=== PATIENT | female | born 1945 | race Caucasian/White ===

== ENCOUNTER 2017-05-19 11:30 | Inpatient (IN) | payer OTHER ==
[~2017-05-19] VITALS: Ht 154.9 cm; Wt 77.1 kg
[2017-05-19 11:30] VITALS: BP_SYST 153
[2017-05-19] MEDS ORDERED: ASPIRIN 81 MG TAB.CHEW PO ONE (11:45)
[2017-05-19] MEDS ORDERED: NITROGLYCERIN 1 INCH (GM) OINT. TP ONE (11:45)
[2017-05-19 12:14] LABS: BASOPHILS % (AUTO) 0.7 % (0.0-2.0); EOSINOPHILS # (AUTO) 0.1 K/uL (0.0-0.4); EOSINOPHILS % (AUTO) 1.9 % (0.0-4.0); HEMATOCRIT 42.7 % (36-48); HEMOGLOBIN 14.1 g/dL (12.0-16.0); LYMPHOCYTES # (AUTO) 1.5 K/uL (1.0-5.5); LYMPHOCYTES % (AUTO) 31.8 % (20.5-51.5); MEAN CORPUSCULAR HEMOGLOBIN 29 pg (27-31); MEAN CORPUSCULAR HGB CONC 33 % (32-36); MEAN CORPUSCULAR VOLUME 88 fL (79.0-98.0); MONOCYTES # (AUTO) 0.5 K/uL (0.0-1.0); MONOCYTES % (AUTO) 11.3 % (1.7-9.3); NEUTROPHILS # (AUTO) 2.5 K/uL (1.8-7.7); NEUTROPHILS % (AUTO) 54.3 % (40.0-70.0); PLATELET COUNT (AUTO) 201 K/uL (130-430); RED BLOOD CELL COUNT(AUTO) 4.86 MIL/uL (4.2-6.2); RED CELL DISTRIBUTION WIDTH 12.9 % (9.0-15.0); WHITE BLOOD COUNT (AUTO) 4.6 K/uL (4.8-10.8)
[2017-05-19 12:24] LABS: ANION GAP 7 (5-15); CALCIUM 9.1 mg/dL (8.4-11.0); CHLORIDE 103 mmol/L (98-107); CREATININE 0.79 mg/dL (0.55-1.30); GLUCOSE 115 mg/dL (70-99); SODIUM SERUM 138 mmol/L (136-145); UREA NITROGEN, BLOOD 18 mg/dL (8-21)
[2017-05-19 12:28] LABS: PROTHROMBIN TIME 10.9 SECS (9.5-12.5)
[2017-05-19 12:29] LABS: ALANINE AMINOTRANSFERASE 18 U/L (12-78); ALBUMIN 3.8 g/dL (3.4-4.8); ASPARTATE AMINOTRANSFERASE 16 U/L (10-37); TOTAL BILIRUBIN 0.6 mg/dL (0.0-1.0); TOTAL PROTEIN, SERUM 7.5 g/dL (6.4-8.3)
[2017-05-19 12:35] LABS: BILIRUBIN,URINE NEGATIVE (NEGATIVE); BLOOD, URINE NEGATIVE (NEGATIVE); CLARITY/URINE SL HAZY (CLEAR); COLOR,URINE YELLOW (YELLOW); GLUCOSE,URINE NEGATIVE (NEGATIVE); KETONES,URINE NEGATIVE (NEGATIVE); LEUKOCYTE ESTERASE ,URINE NEGATIVE (NEGATIVE); NITRITE, URINE NEGATIVE (NEGATIVE); PROTEIN URINE NEGATIVE (NEGATIVE); UROBILINOGEN,URINE 0.2 (0.2-1.0)
[2017-05-19] MEDS ORDERED: ASPIRIN 81 MG TAB.CHEW ONE (12:48)
[2017-05-19] MEDS ORDERED: GLU500 PO (13:32)
[2017-05-19] MEDS ORDERED: MULT PO (13:32)
[2017-05-19] MEDS ORDERED: CEL20 PO (13:32)
[2017-05-19] MEDS ORDERED: pravastatin PO (13:32)
[2017-05-19 15:06] VITALS: BP_SYST 115
[2017-05-19 17:15] VITALS: BP_SYST 119
[2017-05-19 20:00] VITALS: BP_SYST 110
[2017-05-19] MEDS ORDERED: ASPIRIN 325 MG TABLET (ECOTRIN) PO ONE (21:00)
[2017-05-19 23:38] VITALS: BP_SYST 127
[2017-05-20 04:00] VITALS: BP_SYST 108
[2017-05-20 08:31] VITALS: BP_SYST 149
[2017-05-20] MEDS: ASPIRIN 325 MG TABLET PO SCH (09:26)
[2017-05-20] MEDS ORDERED: DEXTROSE 50% JECT 50 ML DISP.SYRIN IVP PRN (11:00)
[2017-05-20 11:14] LABS: CHOLESTEROL 257 mg/dL (<200); HDL CHOLESTEROL 56 mg/dL (>55); LDL CHOLESTEROL 177 mg/dL (<100); TRIGLYCERIDES 175 mg/dL (30-150)
[2017-05-20 12:56] VITALS: BP_SYST 157
[2017-05-20 16:35] VITALS: BP_SYST 144
[2017-05-20] MEDS: metFORMIN HCL 500 MG TABLET PO SCH (17:41)
[2017-05-20 19:50] VITALS: BP_SYST 130
[2017-05-20] MEDS: INSULIN REGULAR, HUMAN 100 UNITS/ML, 10 ML VIAL (novoLIN R) SUBCUT PRN (23:27)
[2017-05-21 00:08] VITALS: BP_SYST 135
[2017-05-21 06:34] VITALS: BP_SYST 134
[2017-05-21] MEDS: INSULIN REGULAR, HUMAN 100 UNITS/ML, 10 ML VIAL (novoLIN R) SUBCUT PRN (07:06)
[2017-05-21] MEDS: metFORMIN HCL 500 MG TABLET PO SCH (08:03)
[2017-05-21 08:05] VITALS: BP_SYST 136
[2017-05-21] MEDS: ASPIRIN 325 MG TABLET PO SCH (08:52)
[2017-05-21] MEDS ORDERED: CITALOPRAM HYDROBROMIDE 20 MG TABLET PO SCH (09:00)
[2017-05-21] MEDS ORDERED: MULTIVITAMINS TAB 1 TABLET PO SCH (09:00)
[2017-05-21 09:13] VITALS: BP_SYST 136
== END 2017-05-21 11:11 | disposition home or self-care (01) | DRG 313 ==
LOC: SED 11:30 → STU 14:37
PROVIDERS: ADMIT Internal Medicine Hospice and Palliative Medicine; ATTEND Internal Medicine Hospice and Palliative Medicine
DX: R07.89 Other chest pain (principal); I10 Essential (primary) hypertension; E11.9 Type 2 diabetes mellitus without complications; E78.5 Hyperlipidemia, unspecified; M79.642 Pain in left hand; M79.7 Fibromyalgia; M54.2 Cervicalgia; Z79.899 Other long term (current) drug therapy; Z90.49 Acquired absence of other specified parts of digestive tract; Z88.0 Allergy status to penicillin
CPT/HCPCS: 36415; 71010; 80053; 80061; 81003; 82962; 83880; 84484; 85025; 85610-TC; 93005; 93306; 99285

== ENCOUNTER 2017-09-28 09:42 | Outpatient (CLI) | payer OTHER ==
[~2017-09-28 09:42] MED LIST: CEL20 PO; GLU500 PO; MULT PO; pravastatin PO
== END 2017-09-28 21:01 | disposition home or self-care (01) ==
LOC: SMA 09:42
PROVIDERS: ATTEND Internal Medicine
DX: Z12.31 Encounter for screening mammogram for malignant neoplasm of breast (principal)
CPT/HCPCS: G0202

== ENCOUNTER 2018-05-05 11:34 | Outpatient (CLI) | payer OTHER | END 2018-05-05 20:25 | disposition home or self-care (01) | LOC: SRD 11:34 | PROVIDERS: ATTEND Internal Medicine | DX: M19.011 Primary osteoarthritis, right shoulder (principal) | CPT/HCPCS: 73030 ==

== ENCOUNTER 2019-03-23 08:50 | Outpatient (CLI) | payer OTHER | END 2019-03-23 18:06 | disposition home or self-care (01) | LOC: SMA 08:50 | PROVIDERS: ATTEND Internal Medicine | DX: Z12.31 Encounter for screening mammogram for malignant neoplasm of breast (principal); R92.0 Mammographic microcalcification found on diagnostic imaging of breast | CPT/HCPCS: 77067 ==

== ENCOUNTER 2021-06-03 09:46 | Outpatient (CLI) | payer OTHER | END 2021-06-03 20:27 | disposition home or self-care (01) | LOC: SMA 09:46 | PROVIDERS: ATTEND Internal Medicine | DX: Z12.31 Encounter for screening mammogram for malignant neoplasm of breast (principal) | CPT/HCPCS: 77067 ==

== ENCOUNTER 2021-12-29 09:19 | Outpatient (CLI) | payer OTHER | END 2021-12-29 21:09 | disposition home or self-care (01) | LOC: SMA 09:19 | PROVIDERS: ATTEND Internal Medicine | DX: N64.4 Mastodynia (principal); R07.89 Other chest pain | CPT/HCPCS: 76642 ==

== ENCOUNTER 2022-02-12 13:07 | Outpatient (CLI) | payer OTHER | END 2022-02-12 18:11 | disposition home or self-care (01) | LOC: SRD 13:07 | PROVIDERS: ATTEND Internal Medicine | DX: Z01.818 Encounter for other preprocedural examination (principal); N93.9 Abnormal uterine and vaginal bleeding, unspecified; J98.4 Other disorders of lung | CPT/HCPCS: 71046-TC ==

== ENCOUNTER 2023-06-30 20:22 | Emergency (ER) | payer OTHER, MEDICAID ==
[~2023-06-30] VITALS: Ht 157.5 cm; Wt 74.8 kg
[2023-06-30 20:28] VITALS: BP_SYST 146; PULSE 74; RESP 20; TEMP 96.8; O2SAT 96
[2023-06-30] MEDS ORDERED: KETOROLAC TROMETHAMINE 60 MG/2 ML VIAL IM ONE ×2 (21:15→21:21)
[2023-06-30] MEDS ORDERED: NAPR-690 PO (21:41)
== END 2023-06-30 21:49 | disposition home or self-care (01) ==
LOC: SED 20:22
DX: S33.5XXA Sprain of ligaments of lumbar spine, initial encounter (principal); J45.909 Unspecified asthma, uncomplicated; I11.0 Hypertensive heart disease with heart failure; I50.9 Heart failure, unspecified; E11.9 Type 2 diabetes mellitus without complications; E78.5 Hyperlipidemia, unspecified; Z88.0 Allergy status to penicillin; Z79.899 Other long term (current) drug therapy; X50.0XXA Overexertion from strenuous movement or load, initial encounter; Y93.89 Activity, other specified; Y92.89 Other specified places as the place of occurrence of the external cause; Y99.8 Other external cause status
CPT/HCPCS: 99283; 72100; 96372; J1885

== ENCOUNTER 2023-07-17 09:38 | Emergency (ER) | payer OTHER, MEDICAID ==
[~2023-07-17 09:38] MED LIST changes: +NAPR-690 PO
[2023-07-17] MEDS ORDERED: KETOROLAC TROMETHAMINE 30 MG VIAL IM ONE (10:15)
[2023-07-17] MEDS ORDERED: HYDROcodone/ACETAMIN 7.5-325 MG TAB PO ONE (10:15)
[2023-07-17] MEDS ORDERED: IBUP-1969 PO (11:09)
[2023-07-17] MEDS ORDERED: TRAM50TA2 PO (11:09)
[2023-07-17 13:29] VITALS: RESP 16
== END 2023-07-17 11:30 | disposition home or self-care (01) ==
LOC: SED 09:38
DX: S22.040A Wedge compression fracture of fourth thoracic vertebra, initial encounter for closed fracture (principal); S22.070A Wedge compression fracture of T9-T10 vertebra, initial encounter for closed fracture; J45.909 Unspecified asthma, uncomplicated; I12.9 Hypertensive chronic kidney disease with stage 1 through stage 4 chronic kidney disease, or unspecified chronic kidney disease; E11.22 Type 2 diabetes mellitus with diabetic chronic kidney disease; N18.9 Chronic kidney disease, unspecified; Z88.0 Allergy status to penicillin; Z79.899 Other long term (current) drug therapy; W17.89XA Other fall from one level to another, initial encounter; Y93.89 Activity, other specified; Y92.89 Other specified places as the place of occurrence of the external cause; Y99.8 Other external cause status
CPT/HCPCS: 99285; 71250; 76376; 96372; J1885